=== PATIENT | female | born 2005 ===

== ENCOUNTER 2023-05-17 18:18 | Emergency (ER) | payer OTHER ==
[2023-05-17 18:28] VITALS: TEMP 97.4
[2023-05-17 18:59] VITALS: BP 109/71; PULSE 101
== END 2023-05-17 19:00 | disposition home or self-care (01) ==
LOC: COL.ER 18:18
DX: O9A.213 Injury, poisoning and certain other consequences of external causes complicating pregnancy, third trimester (principal); S39.91XA Unspecified injury of abdomen, initial encounter; Z3A.33 33 weeks gestation of pregnancy; Y92.410 Unspecified street and highway as the place of occurrence of the external cause; V49.40XA Driver injured in collision with unspecified motor vehicles in traffic accident, initial encounter

== ENCOUNTER 2023-06-24 12:41 | Inpatient (IN) | payer BC, MEDICAID ==
[~2023-06-24] VITALS: Ht 162.6 cm; Wt 78.6 kg
--- NOTE | 2023-06-24 19:30 | NUR ---
1910: Pt arrives to unit ambulatory with spouse, shown to room by staff and instructed to change into gown. 1920: Pt placed on monitors and I discuss with pt and spouse induction understanding and plans. Opportunity for questions given and answered.
[2023-06-24 20:15] VITALS: BP 110/70; PULSE 101; TEMP 98.3
--- NOTE | 2023-06-24 20:45 | NUR ---
2014: Discussed with pt and spouse the Cytotec that is ordered. Questions answered. 2022: Pt up to the bathroom at this time. 2034: SVE /3, Cytotec 25 mcg placed at this time. Pt tolerated well and instructed that she would need to remain laying down for the next hour and then she would be able to get up and use the bathroom after that time. Pt and spouse verbalize their understanding.
[2023-06-24 21:19] LABS: BASO # 0.1 K/mm3 (0.0-0.2); BASO % 0.4 % (0.0-2.0); EOS # 0.2 K/mm3 (0.0-0.7); EOS % 1.5 % (0.0-4.0); GRAN # 8.5 K/mm3 (1.4-6.5); GRAN % 69.1 % (42.2-75.2); LYMPH # 2.1 K/mm3 (1.2-3.4); MEAN CELL VOLUME 74 fl (80.0-95.0); MEAN CORPUSCULAR HGB CONC 31 g/dl (33.0-37.0); MEAN PLATELET VOLUME 9.5 fl (7.4-10.4); MONO # 1.4 K/mm3 (0.1-0.6); MONO % 11.3 % (1.7-9.3); PLATELET COUNT 395 K/mm3 (130-400); RED BLOOD COUNT 4.28 M/mm3 (4.10-5.30)
[2023-06-24 21:20] LABS: HEMATOCRIT 31.8 % (35.0-45.0); HEMOGLOBIN 9.8 g/dl (12.0-15.0); MEAN CORPUSCULAR HEMOGLOBIN 23 pg (26-32)
[2023-06-24] MEDS ORDERED: PRENATAL MVI PO (21:41)
[2023-06-25] VITALS (53 sets, daily range): BP systolic 90–1125; BP diastolic 50–80; PULSE 72–130; TEMP 97.5–98.3
[2023-06-25 00:53] LABS: TRICYCLIC ANTIDEPRESS URINE NEGATIVE
--- NOTE | 2023-06-25 01:15 | NUR ---
0047: Cytotec 25 mcg administered vaginally at this time. Pt tolerated well. Pt remains semi-fowlers and slightly tilted to her left side. Plan of care on going.
--- NOTE | 2023-06-25 02:15 | NUR ---
Pt resting on her right side for comfort, this RN unable to trace ctx due to maternal positioning. Spouse at the bedside for support. Plan of care ongoing.
--- NOTE | 2023-06-25 02:45 | NUR ---
This RN continues to be unable to trace ctx due to maternal position. Pt sleeping on her left side at this time. Plan of care ongoing.
--- NOTE | 2023-06-25 05:15 | NUR ---
0500: This RN enters pt room with LR and pitocin to begin infusing. Pt awake and resting in bed. I ask pt for permission to check her cervix before beginning pitocin infusion and pt refuses at this time. 0510: LR infusing at this time and Pitocin started at 2 mU at this time. Medications documented on the EMAR. Vitals obtained and pt comfortable at this time. Plan of care ongoing.
--- NOTE | 2023-06-25 05:45 | NUR ---
Pt up to the bathroom at this time, assisted pt with the IV pole and getting into the bathroom. Pt tolerating the pitocin infusion well and spouse at bedside for support. This RN unable to determine accels, decels or ctx due to pt being up to the bathroom. RN remains at bedside monitoring pt.
--- NOTE | 2023-06-25 07:20 | NUR ---
SVE AT THIS TIME PER THIS RN. /-3.
--- NOTE | 2023-06-25 08:46 | NUR ---
0840DR GOODPASTURE ON UNIT AT THIS TIME. 0842DR GOODPASTURE AT BEDSIDE. PT REQUESTS WAITING FOR . 0844DR GOODPASTURE BACK AT BEDSIDE. DISCUSSES POC WITH PT. PT VERBALIZES AGREEMENT. 0846SVE AT THIS TIME PER DR VINSON. /-2. AROM AT THIS TIME. MODERATE AMOUNT OF CLEAR FLUID NOTED. PT TOLERATED WELL. EFM TRACING CAT I.
--- NOTE | 2023-06-25 10:33 | NUR ---
1000LR BOLUS STARTED AT THIS TIME 1010LOUANN AUTO BODY REPAIRER FIBERGLASS NOTIFIED OF PT REQUEST FOR EPIDURAL. 1020PT SITTING ON SIDE OF BED. PULSE OX PLACED. EFM TRACING CAT I. PT VITAL SIGNS STABLE. 1022LOUANN AUTO BODY REPAIRER FIBERGLASS AT BEDSIDE. DISCUSSES POC WITH PT. PT VERBALIZES AGREEMENT. 1033TEST DOSE ADMINISTERED AT THIS TIME PER PRISCILLA CAPUTO. PT VITAL SIGNS STABLE. EFM TRACING CAT I. PT TOLERATED WELL. 1040PT BACK TO BED. POSITIONED WEDGE RIGHT. VITAL SIGNS STABLE. EFM CAT I. PT COMFORTABLE IN BED. 1050PT STATES CTX FEELING SLIGHTLY BETTER. 1102ZOFRAN ADMINISTERED AT THIS TIME. 1110PT STATES LEFT SIDE NUMB, STILL CAN CTX ON RIGHT SIDE. 1120PT REPOSITIONED TO RIGHT LATERAL, AND PUSHED HER EPIDURAL BUTTON 1125PT STATES FEELING RELIEF FROM CTX, AND RIGHT SIDE GETTING NUMB.
--- NOTE | 2023-06-25 12:25 | NUR ---
1225FOLEY PLACED AT THIS TIME. SVE AT THIS TIME WELL. /-2. PT TOLERATED WELL. PT VITAL SIGNS STABLE. EFM TRACING CAT I.
--- NOTE | 2023-06-25 13:15 | NUR ---
1315-1340SIERRA RN WATCHING STRIP WHILE THIS RN EATS LUNCH.
--- NOTE | 2023-06-25 14:45 | NUR ---
1345EARLY DECELS NOTED AT THIS TIME. 1350THIS RN AT BEDSIDE. RN DISCOVERS LOW BLOOD PRESSURE, AND PT FEELS NAUSEOUS. 92/50 1352FIRST DOSE OF EPHEDRINE GIVEN AT THIS TIME. EFM TRACING CAT I. PT REPOSITIONED TO LEFT LATERAL. 1400SECOND DOSE OF EPHEDRINE GIVEN. 1415THIRD DOSE OF EPHEDRINE GIVEN. 1420BLOOD PRESSURE BEGINS TO RISE. 100/54. PT ASYMPTOMATIC. EFM TRACING CAT I. LR #3 STARTED AT THIS TIME. THIS RN STAYS AT BEDSIDE TO MONITOR. 1430PT RESPOSITONED TO RIGHT LATERAL. 1445SVE AT THIS TIME BY THIS RN. /-1. SECOND CHECK BY SHANNON MONSIVAIS. PT VITAL SIGNS STABLE. EFM TRACING CAT I. 1458PROLONGED ACCEL NOTED. THIS RN AT BEDSIDE. 1500ACCEL RESOLVES. 1502-1508PROLONGED ACCEL. PT VITAL SIGNS STABLE. 1519-1528PROLONGED ACCEL. PT VITAL SIGNS STABLE. PT REPOSITIONED. 1532PROLONGED ACCELS RESOLVED. FHR RETURNS TO BASELINE OF 135. PT STATES FEELING RECTAL PRESSURE. SVE AT THIS TIME BY THIS RN. /0. PT REPOSITIONED WEDGE RIGHT.
--- NOTE | 2023-06-25 17:24 | NUR ---
1612SVE AT THIS TIME BY THIS RN WITH SECOND CHECK BY ALBA MONSIVAIS. /+1. 1614CHARYOVANY NURSE, MECCA NURSE, AND DR VINSON NOTIFIED. THIS RN ASKED DR VINSON IF SHE WANTED ME TO START PUSHING WITH PT. DR VINSON REPLIES YES START PUSHING I WILL BE OVER SOON AFTER CLINIC, AND CALL ME IF YOU NEED ME SOONER. 1618ROOM AND SUPPLIES SET UP FOR DELIVERY. 1620-1640THIS RN SITS DOWN AND DISCUSSES POC WITH PT. WE DISCUSS HOW TO PUSH, WHAT WILL HAPPEN DURING DELIVERY, WHAT WILL HAPPEN AFTER DELIVERY, ETC. PT VERBALIZES UNDERSTANDING. EFM TRACING CAT I. 1640FOLEY REMOVED AT THIS TIME. 1644THIS RN BEGAN PUSING WITH PT AT THIS TIME. GOOD MATERNAL EFFORT. VITAL SIGNS STABLE. EFM TRACING CAT I. 1708CALLED DR VINSON AT THIS TIME. THIS RN TELLS HER WE ARE READY FOR HER. DR VINSON STATES I AM ON MY WAY. 1708-1714THIS RN INSTRUCTS PT TO BREATHE THROUGH CTX WE WAIT FOR DR VINSON FOR DELIVERY. 1715DR VINSON AT BEDSIDE. ROOM AND PT SET UP FOR DELIVERY. 1716PT BEGAN PUSHING WITH CTX AGAIN. 1724SVD OF VIABLE MALE INFANT AT THIS TIME PER DR VINSON. NUCHAL CORD X1 NOTED. PLACED ON MATERNAL ABDOMEN. CARE ASSUMED BY MECCA. 1729SVD OF PLACENTA AT THIS TIME PER DR VINSON. PITOCIN BOLUS STARTED. LEFT VAGINAL WALL AND RIGHT PERIURETHRAL LACERATIONS NOTED PER DR VINSON. REPAIR STARTED AT THIS TIME. 1735REPAIR FINISHED BY DR VINSON. PT VITAL SIGNS STABLE. FUNDUS FIRM AT U. LOCHIA WNL. 1740ROOM AND BED PUT BACK TOGETHER. PERICARE PERFORMED. CHUX CHANGED. ICE PACK PLACED ON PERINEUM. FUNDUS FIRM AT U. LOCHIA WNL. PT COMFORTABLE IN BED.
--- NOTE | 2023-06-25 20:45 | NUR ---
Up to bathroom with steady gait. Voids good amount, performs owm pericare after instruction. pad, panties, clean gown on. Ambulates to post room. attentive, loving, doting.
[2023-06-26 04:30] VITALS: BP 118/67; PULSE 79; TEMP 98.8
[2023-06-26 07:30] VITALS: BP 106/61; PULSE 83; TEMP 97.9
--- NOTE | 2023-06-26 10:09 | NUR ---
Initial visit; Patient's thanked Data Warehouse Administrator for offering congratulations and God's blessings for the of their son. Patient indisposed. Data Warehouse Administrator pleased to meet their baby boy.
[2023-06-26] MEDS ORDERED: IBU800 M1 PO (13:00)
[2023-06-26 16:00] VITALS: BP 110/60; PULSE 92; TEMP 98
[2023-06-26 19:00] VITALS: BP 118/66; PULSE 95; TEMP 98.3
--- NOTE | 2023-06-26 21:00 | NUR ---
THIS RN TO MOTHER'S ROOM TO CHECK IN. MOTHER UP WALKING AND ROCKING FUSSY WHO IS SUCKING ON PASSIFIER. MOTHER IS EMOTIONAL AND STATES THAT IS NOT LATCHING, BUT APPEARS HUNGRY AND WANTS TO FEED. THIS RN EDUCATED MOTHER ON FEEDING OPTIONS AND OFFERED ASSISTANCE. MOTHER OPTED TO HAVE INFANT GO TO NURSERY AT THIS TIME UNTIL NEXT FEEDING AROUND 0000 AND GAVE VERBAL OKAY FOR THIS RN TO TOP OFF WITH SIMILAC. THIS NURSE GAVE MOTHER RE-ASSURANCE AND DISCUSSED PERFORMING THE NEXT BREAST FEEDING ATTEMPT TOGETHER. MOTHER VERBALIZED UNDERSTANDING. INFANT BROUGHT TO NURSERY AT THIS TIME.
[2023-06-27 08:16] VITALS: BP 110/69; PULSE 79
--- NOTE | 2023-06-27 12:15 | NUR ---
DISCHARGE SUMMARY GIVEN, DISCHARGE EDUCATION COMPLETED, AND FOLLOW UP APPOINTMENT DISCUSSED.
== END 2023-06-27 13:47 | disposition home or self-care (01) | DRG 806 ==
LOC: OB 12:41 → LDR 18:57 → OB 18:57
PROVIDERS: ADMIT Student in an Organized Health Care Education/Training Program
PROC: 3E0P7VZ Introduction of Hormone into Female Reproductive, Via Natural or Artificial Opening (ICD-10-PCS; 2023-06-24)
PROC: 3E033VJ Introduction of Other Hormone into Peripheral Vein, Percutaneous Approach (ICD-10-PCS; 2023-06-24)
PROC: 10E0XZZ Delivery of Products of Conception, External Approach (ICD-10-PCS; principal; 2023-06-25)
PROC: 10907ZC Drainage of Amniotic Fluid, Therapeutic from Products of Conception, Via Natural or Artificial Opening (ICD-10-PCS; 2023-06-25)
PROC: 0UQMXZZ Repair Vulva, External Approach (ICD-10-PCS; 2023-06-25)
PROC: 0UQGXZZ Repair Vagina, External Approach (ICD-10-PCS; 2023-06-25)
DX: O36.5930 Maternal care for other known or suspected poor fetal growth, third trimester, not applicable or unspecified (principal); O71.4 Obstetric high vaginal laceration alone; Z37.0 Single live birth; O71.82 Other specified trauma to perineum and vulva; O24.420 Gestational diabetes mellitus in childbirth, diet controlled; O99.343 Other mental disorders complicating pregnancy, third trimester; F41.9 Anxiety disorder, unspecified; O69.81X0 Labor and delivery complicated by cord around neck, without compression, not applicable or unspecified; Z3A.38 38 weeks gestation of pregnancy
CPT/HCPCS: J2405; J2590; J2795; J7120

== ENCOUNTER 2023-07-24 23:47 | Emergency (ER) | payer BC, MEDICAID ==
[~2023-07-24] VITALS: Ht 162.6 cm; Wt 70.5 kg
[~2023-07-24 23:47] MED LIST: IBU800 M1 PO; PRENATAL MVI PO
[2023-07-25] MEDS ORDERED: NS 1,000 ML IV ONE (00:15)
[2023-07-25] MEDS ORDERED: fentaNYL 50 MCG/ML 2 ML VIAL IV ONE ×2 (00:15→03:30)
[2023-07-25] MEDS ORDERED: Sucralfate Susp 1 GM/10 ML UD PO ONE (00:15)
[2023-07-25 00:36] LABS: BASO # 0.1 K/mm3 (0.0-0.2); BASO % 0.9 % (0.0-2.0); EOS # 0.3 K/mm3 (0.0-0.7); EOS % 3.4 % (0.0-4.0); GRAN # 5.1 K/mm3 (1.4-6.5); GRAN % 53.1 % (42.2-75.2); HEMATOCRIT 37.9 % (35.0-45.0); HEMOGLOBIN 11.4 g/dl (12.0-15.0); LYMPH # 3.2 K/mm3 (1.2-3.4); MEAN CELL VOLUME 76 fl (80.0-95.0); MEAN CORPUSCULAR HEMOGLOBIN 23 pg (26-32); MEAN CORPUSCULAR HGB CONC 30 g/dl (33.0-37.0); MEAN PLATELET VOLUME 9.7 fl (7.4-10.4); MONO # 0.9 K/mm3 (0.1-0.6); MONO % 9.3 % (1.7-9.3); PLATELET COUNT 324 K/mm3 (130-400); RED BLOOD COUNT 4.96 M/mm3 (4.10-5.30); REDCELL DISTRIBUTION WIDTH-CV 20.4 % (11.5-14.5)
[2023-07-25 00:53] LABS: ALBUMIN 3.8 gm/dL (3.5-5.0); BILIRUBIN,TOTAL 0.7 mg/dL (0.2-1.2); C-REACTIVE PROTEIN 0.31 mg/dL (0.00-0.50); CALCIUM 9.5 mg/dL (8.4-10.2); CREATININE, serum 0.84 mg/dL (0.57-1.11); POTASSIUM 3.9 mmol/L (3.5-4.5); TOTAL PROTEIN 6.9 gm/dL (6.2-8.1)
[2023-07-25] MEDS ORDERED: Iohexol 300 - 100 ML VIAL IV ONE (02:25)
[2023-07-25] MEDS ORDERED: NS 74 ML IV ONE (02:26)
[2023-07-25] MEDS ORDERED: CARAFATE S1 GM/10 ML PO (03:37)
[2023-07-25] MEDS ORDERED: REGLAN 10MG10 MG/TAB PO (03:37)
[2023-07-25 04:07] VITALS: BP 106/60; PULSE 70; TEMP 98.3
== END 2023-07-25 04:07 | disposition home or self-care (01) ==
LOC: COL.ER 23:47
PROVIDERS: Emergency Medicine
DX: R10.13 Epigastric pain (principal); R07.2 Precordial pain; R79.89 Other specified abnormal findings of blood chemistry
CPT/HCPCS: J2765; J3010; J7030; Q9967

== ENCOUNTER → 2023-08-05 | Outpatient (CLI) | payer BC, MEDICAID ==
[~2023-08-05] MED LIST changes: +CARAFATE S1 GM/10 ML PO; +REGLAN 10MG10 MG/TAB PO
== END ==
LOC: COL.RAD 08:22
DX: R10.11 Right upper quadrant pain (principal)